=== PATIENT | female | born 1945 | race Caucasian/White ===

== ENCOUNTER 2023-05-10 12:53 | Outpatient (CLI) | payer MEDICARE, SELFPAY | END 2023-05-10 12:54 | disposition home or self-care (01) | LOC: AMB 05-11 11:25 | PROVIDERS: Visit Provider Family Medicine | DX: R53.1 Weakness (principal) | CPT/HCPCS: A0425; A0427 ==

== ENCOUNTER 2024-03-10 16:39 | Outpatient (CLI) | payer MEDICARE, SELFPAY | END 2024-03-10 16:40 | disposition home or self-care (01) | LOC: AMB 03-13 01:44 | PROVIDERS: PCP Family Medicine; Visit Provider Emergency Medicine | DX: R53.1 Weakness (principal) | CPT/HCPCS: A0425; A0427 ==

== ENCOUNTER 2024-03-11 07:48 | Outpatient (CLI) | payer MEDICARE, SELFPAY | END 2024-03-11 07:49 | disposition home or self-care (01) | LOC: AMB 03-13 02:02 | PROVIDERS: PCP Family Medicine; Visit Provider Family Medicine | DX: R53.1 Weakness (principal); F03.90 Unspecified dementia, unspecified severity, without behavioral disturbance, psychotic disturbance, mood disturbance, and anxiety | CPT/HCPCS: A0425; A0429 ==